=== PATIENT | male | born 1955 | race Caucasian/White ===

== ENCOUNTER 2025-05-10 05:55 | Day surgery (SDC) | payer MEDICARE, OTHER ==
[2025-05-10] VITALS (10 sets, daily range): BP systolic 119–150; BP diastolic 71–100
[~2025-05-10] VITALS: Ht 180.3 cm; Wt 75.9 kg
[~2025-05-10 05:55] MED LIST: Saw Palmetto160 MG PO; VITAMIN D5000 UNIT PO; Vitamin B Comple1 EA PO
[2025-05-10] MEDS ORDERED: CeFAZolin Sodium 2,000 MG in NS 100 ML IV SCH (06:20)
[2025-05-10] MEDS ORDERED: FentaNYL Citrate 50 MCG/ML 2 ML Injection ONE (06:47)
[2025-05-10] MEDS ORDERED: Dexamethasone Sod Phos 10 MG/ML 1ML VIAL ONE (06:48)
[2025-05-10] MEDS ORDERED: Ondansetron HCl 2 MG / ML 2ML Vial ONE (06:48)
[2025-05-10] MEDS ORDERED: Bupivacaine 0.5% W/EPI 1:200000 SDV 30 ML Vial ONE (07:03)
--- NOTE | 2025-05-10 07:14 | NUR ---
Ambulatory in Day Surgery WITH STEADY GAIT. History, Chart, Medications and Allergies reviewed before start of procedure. Pre-Op teaching done. Pt verbalizes understanding. Patient States Post-Procedure ride home has been arranged WITH ROOMMATE. ALL BELONGINGS INCLUDING GLASSES PLACED UNDER GURN IN PT BELONGING BAG.
[2025-05-10] MEDS ORDERED: Bupivacaine 0.5% HCl 5 MG/ML 30MLVIAL ONE (07:27)
[2025-05-10] MEDS ORDERED: Midazolam HCl 1MG / ML 2ML Vial ONE (07:29)
[2025-05-10] MEDS ORDERED: Glycopyrrolate 0.2 MG/ML 5ML VIAL ONE (07:43)
[2025-05-10] MEDS ORDERED: ePHEDrine Sulfate 50 MG/ML 1ML Injection ONE (07:47)
[2025-05-10] MEDS ORDERED: Ondansetron HCl 2 MG / ML 2ML Vial IV PRN (08:10)
[2025-05-10] MEDS ORDERED: HydrALAZINE HCl 20 MG / ML 1ML Vial IV PRN (08:10)
[2025-05-10] MEDS ORDERED: ePHEDrine Sulfate 50 MG/ML 1ML Injection IV PRN (08:10)
[2025-05-10] MEDS ORDERED: Albuterol 2.5 MG/3 ML VIAL INH PRN (08:10)
[2025-05-10] MEDS ORDERED: FentaNYL Citrate 50 MCG/ML 2 ML Injection IV PRN (08:10)
[2025-05-10] MEDS ORDERED: HYDROmorphone HCl/Pf 1MG SYR IV PRN ×2 (08:10)
[2025-05-10] MEDS ORDERED: Ketorolac Tromethamine 30mg Vial ONE (08:49)
[2025-05-10] MEDS ORDERED: HYDROcodone 5-APAP 325 TAB PO PRN (09:05)
--- NOTE | 2025-05-10 09:49 | NUR ---
TO STEP POST RIGHT INGUINAL HERNIA REPAIR. GAUZE/TEGADERM DRESSING CDI. DENIES PAIN, NAUSEA, SOB AT THIS TIME. AMARA PO WELL. ICE THERAPY PROVIDED. VERBALIZED UNDERSTANDING OF DC INSTRUCTIONS. 1 NORCO GIVEN PRIOR TO DC.
== END 2025-05-10 10:14 | disposition home or self-care (01) ==
LOC: ORSCMMR 05:55 → ORD 07:30 → ORSCMMR 10:14
PROVIDERS: Surgery
PROC: 0YU50JZ Supplement Right Inguinal Region with Synthetic Substitute, Open Approach (ICD-10-PCS; principal; 2025-05-10 07:30)
DX: K40.90 Unilateral inguinal hernia, without obstruction or gangrene, not specified as recurrent (principal)
CPT/HCPCS: A9270; J0690; J1100; J1885; J2250; J2405; J2704; J3010; J7120